=== PATIENT | male | born 1955 | race Caucasian/White ===

== ENCOUNTER 2018-10-30 10:08 | Outpatient (CLI) | payer OTHER ==
[2018-10-30 11:38] LABS: eGFR (Non-African) > 60
[2018-10-30 11:41] LABS: HDL 60 mg/dL (>40)
== END 2018-10-30 10:10 ==
LOC: LAB 10:08
PROVIDERS: ATTEND Family Medicine
DX: I10 Essential (primary) hypertension (principal); Z12.11 Encounter for screening for malignant neoplasm of colon
CPT/HCPCS: 36415; 80053; 80061

== ENCOUNTER 2018-11-30 08:21 | Day surgery (SDC) | payer OTHER ==
--- NOTE | 2018-12-02 13:09 | GI Report ---
DATE OF PROCEDURE: 11/30/2018 REFERRING PHYSICIAN: Dr. Saini. PROCEDURE PERFORMED: Colonoscopy. INDICATION FOR PROCEDURE: The patient is a 63-year-old man referred for screening. This is his first colonoscopy. He denies any change in bowel habits. He does have hypertension, under treatment. He has not smoked in 30 years. Denies family history of colorectal cancer. PROCEDURE MEDICATION: Propofol, as per Anesthesia. DESCRIPTION OF PROCEDURE: The Olympus video colonoscope was advanced through the rectum. The prep was fair. There still was a little green-colored material that we lavaged throughout the colon. We were able to get all the way to the cecum. The appendiceal orifice looked normal. The terminal ileum looked normal. On slow withdrawal, the cecum, ascending colon and transverse colon, no obvious intraluminal lesions noted. Descending colon and sigmoid: Some redundancy but no obvious intraluminal lesions noted. Retroflexion in the rectum was normal. The patient tolerated the procedure well. FINDINGS: Normal screening colonoscopy. RECOMMENDATIONS: 1. Would increase fiber in the diet. 2. Consider relook at his colon again in 10 years, sooner if clinically indicated. SUAD EASTON M.D., F.A.C.P. TEDDY/levy Job#: [id number] Cc: Dr. Yeny MAGAÑA
== END 2018-11-30 10:45 | disposition home or self-care (01) ==
LOC: OPSURG 08:21
PROVIDERS: ATTEND Internal Medicine Gastroenterology
DX: Z12.11 Encounter for screening for malignant neoplasm of colon (principal); K63.89 Other specified diseases of intestine
CPT/HCPCS: 45378